=== PATIENT | female | born 1955 | race Caucasian/White ===

== ENCOUNTER 2025-03-04 11:16 | Emergency (ER) | payer MEDICAID, SELFPAY ==
--- OUTSIDE RECORDS SUMMARY | 2019-11-13 03:18 | XMS_ITS | Continuity of Care Document ---
Author Organization [facility] Address [address] [id number] [address] Phone Care Team Providers Care Software Client Architect Name Role Phone Akash Wu MD Unavailable Unavailable Allergies, Adverse Reactions, Alerts Substance Reaction Status Criticality Penicillins Other Active No Information Penicillins Other Active No Information Medications Medication Instructions Dosage Effective Dates (start - stop) Status Comments Cipro 500 mg tablet take 1 tablet by oral route every 12 hours for 3 days for presumed UTI; appt if not better. - Active pharm note please call pt when ready Cipro 500 mg tablet take 1 tablet by oral route every 12 hours x 7 days - Active Anusol-HC 2.5 % rectal cream apply by topical route 2 times every day to the affected area(s) as needed for external hemorrhoids; may keep at bedside - Active metformin 1,000 mg tablet take 1 and a half tablet by oral route every morning and 1 tab by mouth every evening with meals, not dose increase - Active ibuprofen 600 mg tablet take 1 tablet by oral route 3 times every day with food as needed for pain - Active DME use as needed for period/when having period blood flow. - Active Icy Hot 30 %-10 % topical cream use as directed for back/hip pain - Active aspirin 325 mg tablet take 1 tablet by oral route every 6 hours as needed for pain; to replace ibuprofen - Active gemfibrozil 600 mg tablet take 1 tablet by oral route 2 times every day 30 minutes before morning and evening meal for high triglycerides - Active new med Zyrtec 10 mg tablet take 1 tablet by oral route every day 10 MG - Active Tums 200 mg calcium (500 mg) Chewable Tab take 2-3 prn repeatQ hourif sx return, no more than 10 tabs in 24 hours. - Active Eucerin Topical Cream daily as directed for dry skin - Active Topamax 100 mg Tab take 1 Tablet (100MG) by ORAL route 2 times every day 100 MG - Active nitroglycerin 0.[address] 1 tablet (0.4MG) by sublingual route at the 1st sign of attack; may repeat every 5 min until relief; if pain persists after 3 tablets in 15 min, prompt medical attention is recommended for prn chest pain 0.4 MG - Active Calcium 500 + D 500 mg (1,250 mg)-200 unit Tab take 1 Tablet by Oral route 3 times every day 1 Tablet - Active Tylenol 325 mg tablet take 1 - 2 tablet by oral route every 4 - 6 hours as needed, max of 3000mg per day - Active Zyprexa Zydis 5 mg disintegrating tablet take 1 tablet by oral route 2 times every day and place on top of the tongue where it will dissolve, then swallow 5 MG - Active Depakote ER 500 mg tablet,extended release take 1 tablet by oral route every day 500 MG - Active lisinopril 20 mg tablet take 1 tablet by oral route every day 20 MG - Active Flonase 50 mcg/actuation Nasal [place] inhale 1 spray by intranasal route every day in each nostril - Active Milk of Magnesia 400 mg/5 mL Oral Susp take 30 milliliter by ORAL route every day as needed, followed by a full glass (8 oz) of liquid 30.00 milliliter - Active Colace 50 mg Cap take 2 Capsule by oral route 2 times every day at bedtime as needed 100 MG - Active lorazepam 2 mg tablet take 1 tablet by ORAL route every bedtime as needed 2 MG - Active haloperidol 5 mg tablet take 1 tablet by oral route 2 times every day 5 MG - Active olanzapine 15 mg tablet take 1 tablet by oral route every day 15 MG - Active trazodone 50 mg tablet take 1 by Oral route twice daily as needed - Active clonazepam 0.5 mg tablet take 1 tablet by oral route 2 times every day 0.5 MG - Active Procedures Procedure Date URINE CULTURE, ROUTINE CPT 91025 2016 URINALYSIS AUTO W/O SCOPE OFFICE/OUTPATIENT VISIT EST No Charge Lab Codes OFFICE/OUTPATIENT VISIT EST MICROALBUMIN SEMIQUANT ASSAY OF URINE CREATININE URINALYSIS AUTO W/SCOPE SED RATE C-REACTIVE PROTEIN LIPID PANEL GLYCOSYLATED HEMOGLOBIN TEST Vitamin D 25-OH H Pylori, IgM, IgG, IgA, AB ROUTINE VENIPUNCTURE GENERAL HEALTH PANEL OFFICE/OUTPATIENT VISIT, EST URINALYSIS AUTO W/O SCOPE GLYCOSYLATED HEMOGLOBIN TEST OFFICE/OUTPATIENT VISIT EST Pap Test & HPV CPT 47974/35269 17 PREV VISIT, EST, AGE 40-64 MICROALBUMIN SEMIQUANT ASSAY OF URINE CREATININE URINALYSIS AUTO W/SCOPE COMPREHEN METABOLIC PANEL LIPID PANEL GLYCOSYLATED HEMOGLOBIN TEST ROUTINE VENIPUNCTURE OFFICE/OUTPATIENT VISIT EST OFFICE/OUTPATIENT VISIT EST X-RAY EXAM OF LOWER SPINE, 2-3 views Sep COMPREHEN METABOLIC PANEL ROUTINE VENIPUNCTURE (PP $3.50) 016 GLYCOSYLATED HEMOGLOBIN TEST X-RAY EXAM OF LOWER SPINE, 2-3 views Sep OFFICE/OUTPATIENT VISIT EST URINE TEST URINALYSIS AUTO W/O SCOPE URINE CULTURE, ROUTINE CPT 45151 2015 OFFICE/OUTPATIENT VISIT, EST PREV VISIT, EST, AGE 40-64 OFFICE/OUTPATIENT VISIT EST COMPLETE CBC W/AUTO DIFF WBC ASSAY THYROID STIM HORMONE ROUTINE VENIPUNCTURE (PP $3.50) 016 GLYCOSYLATED HEMOGLOBIN TEST URINE TEST URINALYSIS AUTO W/SCOPE URINE TEST (PP $7) OFFICE/OUTPATIENT VISIT EST COMPLETE CBC W/AUTO DIFF WBC (PP $13.25) ASSAY THYROID STIM HORMONE (PP $28.50) ROUTINE VENIPUNCTURE (PP $3.50) 015 OFFICE/OUTPATIENT VISIT EST MICROALBUMIN SEMIQUANT (PP $7.75) ASSAY OF URINE CREATININE (PP $8.75) Sep GLYCOSYLATED HEMOGLOBIN TEST (PP $16.50) COMPREHEN METABOLIC PANEL (PP $18) ROUTINE VENIPUNCTURE (PP $3.50) 015 X-RAY EXAM OF HIP, 2 views X-RAY EXAM OF HIP, 2 views X-RAY EXAM OF LOWER SPINE, 2-3 views Aug X-RAY EXAM OF HIP, 2 views X-RAY EXAM OF LOWER SPINE, 2-3 views Jul X-RAY EXAM OF HIP, 2 views OFFICE/OUTPATIENT VISIT EST TISSUE EXAM BY PATHOLOGIST (PP $54) BIOPSY OF UTERUS LINING OFFICE/OUTPATIENT VISIT EST COMPLETE CBC W/AUTO DIFF WBC (PP $13.25) COMPREHEN METABOLIC PANEL (PP $18) -2013 GLYCOSYLATED HEMOGLOBIN TEST (PP $16.50) LIPID PANEL (PP $22.75) ROUTINE VENIPUNCTURE (PP $3.50) 014 URINE TEST (PP $7) URINALYSIS AUTO W/SCOPE (PP $5.50) OFFICE/OUTPATIENT VISIT, EST GLYCOSYLATED HEMOGLOBIN TEST (PP $16.50) ROUTINE VENIPUNCTURE (PP $3.50) 014 OFFICE/OUTPATIENT VISIT, EST Pap Test & HPV CPT 52422/30692 14 OFFICE/OUTPATIENT VISIT, EST URINALYSIS AUTO W/O SCOPE (PP $3.50) Sep URINE TEST (PP $7) ROUTINE VENIPUNCTURE (PP $3.50) 014 GENERAL HEALTH PANEL COMPLETE CBC W/AUTO DIFF WBC (PP $13.25) COMPREHEN METABOLIC PANEL (PP $18) GLYCOSYLATED HEMOGLOBIN TEST (PP $16.50) ROUTINE VENIPUNCTURE (PP $3.50) 014 OFFICE/OUTPATIENT VISIT, EST ASSAY OF FREE THYROXINE (PP $15.25) LIPID PANEL (PP $22.75) ROUTINE VENIPUNCTURE (PP $3.50) 013 GENERAL HEALTH PANEL OFFICE/OUTPATIENT VISIT, EST URINALYSIS AUTO W/O SCOPE (PP $3.50) Jan OFFICE/OUTPATIENT VISIT, EST X-ray Foot, Complete - AP, Oblique, Late ral, 3 Views OFFICE/OUTPATIENT VISIT, EST COMPREHEN METABOLIC PANEL (PP $18) ROUTINE VENIPUNCTURE (PP $3.50) 012 OFFICE/OUTPATIENT VISIT, EST OFFICE/OUTPATIENT VISIT, EST OFFICE/OUTPATIENT VISIT, EST OFFICE/OUTPATIENT VISIT, EST PREV VISIT, EST, AGE 40-64 OFFICE/OUTPATIENT VISIT, EST ELECTROCARDIOGRAM, COMPLETE OFFICE/OUTPATIENT VISIT, EST COMPLETE CBC W/AUTO DIFF WBC (PP $10) Ma OCCULT BLOOD, FECES (PP $10) PREV VISIT, EST, AGE 40-64 PAP IG (PP $35) OCCULT BLD FECES, 1-3 TESTS (PP $10) Jun COMPREHEN METABOLIC PANEL (PP $15) LIPID PANEL (PP $20) ASSAY THYROID STIM HORMONE (PP $15) ASSAY, DIPROPYLACETIC ACID (PP $20) OFFICE/OUTPATIENT VISIT, EST EST-EXP PROB FOC/LOW COMPLEXITY 010 MED NUTRITION, INDIV, SUBSEQ LIPID PANEL $20 (293212) OCCULT BLD, $10 (IN-HOUSE) THIN PREP PAP ONLY $35 (821747) 010 PREVENT-EST, 40-64 COMPLETE CBC W/AUTO DIFF WBC $10 (263080 ) DEPAKOTE (VALPROIC ACID) $ 20 (369122) F URINALYSIS MACROSCOPIC $5 (in-house) Jul FOLATE (FOLIC ACID) $15 (736811) 2009 COMPREHEN METABOLIC PANEL $15 (724701) F EST-EXP PROB FOC/LOW COMPLEXITY 010 NEW-DETAIL/LOW COMPLEXITY Advance Directives Directive Yes / No Effective Date File Name No Information Encounters Encounter Description Practice Location Reason(s) For Visit Diagnoses Date Provider Providers Copied on Encounter [facility], [id number] [place], [address], [place] tel:[phone] [facility] F1 No Information 3 0 Bryce Bustos. [address] [place], [address], [place]. tel:[phone] [facility], [address] [place]38[place], [address], [place] tel:[phone] Family [facility] F1 No Information 9 Suraj Mcgee. [address], [place], [address], [place]. tel:[phone] [facility], [id number] 6229349AV- [facility], [place], [place], [address], [place] tel:[phone] Family [facility] F1 No Information 7 Suraj Mcgee. [address] [place], [place], [address], [place]. tel:[phone] [facility], [address] 1136921PY- [facility], [place], [place], [address], [place] tel:[phone] [facility] F1 Urinary tract infection, site not specified 7 Elmo Moon. [address], [place], [address], [place]. tel:[phone] Referring Provider: Red Borrego, [address] [place], [address] . tel:[phone] [facility], [address]W1 0313771HS- [place], [address], [place] tel:[phone] Family [facility] F1 Dysuria 7 Elmo Moon. [address], [place], [address], [place]. tel:[phone] Referring Provider: Red Borrego, [address] [place], [address] . tel:[phone] OFFICE/OUTPA TIENT VISIT EST [facility], [id number] 3248009BU- [place], [address], [place] tel:[phone] Family [facility] F1 uti (chief complaint) UTI 7 Elmo Moon. [address], [place], [address], [place]. tel:[phone] Referring Provider: Red Borrego, [address] [place], [address] . tel:[phone] [facility], [address]cc[address] 9190210DI- [place], [address], [place] tel:[phone] Family [facility] F1 Diarrhea, unspecifiedMi xed hyperlipidemi aType 2 diabetes mellitus without complications Other termite control servicer (current) drug therapyNausea 7 Suraj Everardo. [address], [place], [address], [place]. tel:[phone] Referring Provider: Everardo Vanegas, [address] [place], [address] . tel:[phone] [facility], [address]ijg[address]T1 4081531OV- [place], [place], [address], [place] tel:[phone] [facility] F1 DysuriaType 2 diabetes mellitus without complications 7 Suraj Everardo. [address], [place], [address], [place]. tel:[phone] Referring Provider: Everardo Vanegas, [address] [place], [address] . tel:[phone] [facility], [id number] 3043288NU- [place], [address], [place] tel:[phone] [facility] F1 Dysuria 7 Suraj Everardo. [address], [place], [address], [place]. tel:[phone] Referring Provider: Everardo Vanegas, [address] [place], [address] . tel:[phone] OFFICE/OUTPA TIENT VISIT EST [facility], [address]gwud[address]T8 5947524VV- [place], [address], [place] tel:[phone] Family Medicine F1 Established Patient (chief complaint)anx iety (chief complaint)H&P (chief complaint) NauseaType 2 diabetes mellitus without complications Essential (primary) hypertensionD ysuriaMixed hyperlipidemi aConstipation , unspecifiedDi arrhea, unspecifiedOt her termite control servicer (current) drug therapyEncoun ter for screening for malignant neoplasm of colon Suraj Mcgee. [address], [place], [address], [place]. tel:[phone] Referring Provider: Everardo Vanegas, [address] [place], [address] . tel:[phone] OFFICE/OUTPA TIENT VISIT, [facility], [address] 8200047VKElwell, [place], [address], [place] tel:[phone] Family Medicine F1 dysuria (chief complaint) Dysuria Aaron Florez. [address] [place] [address], [address], [place]. tel:[phone] Referring Provider: Vikki Walker, [address] [place] [address], [address] . tel:[phone] [facility], [address] Nuqpy[address]I4 2279800VYSaint [place], [address], [place] tel:[phone] Family [facility] F1 Dysuria Aaron Florez. [address] [place] [address], [id number], [place]. tel:[phone] Referring Provider: Vikki Walker, [address] [place] [address], [address] . tel:[phone] [facility], [address] 4958504CCEl[place], [place], [address], [place] tel:[phone] Family [facility] F1 Type 2 diabetes mellitus without complications Suraj Mcgee. [address], [place], [address], [place]. tel:[phone] Referring Provider: Everardo Vanegas, [address] [place], [address] . tel:[phone] OFFICE/OUTPA TIENT VISIT EST [facility], [address] Tpmpj[address]V3 6037562UG- [place], [address], [place] tel:[phone] Family [facility] F1 Follow Up of Hypertension (chief complaint)Allan sea (chief complaint)panfilo betes (chief complaint) Essential (primary) hypertensionT ype 2 diabetes mellitus without complications 7 Suraj Mcgee. [address], [place], [address], [place]. tel:[phone] Referring Provider: Everardo Vanegas, [address] [place], [address] . 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 [address], [place], [address], [place]. tel:[phone] Referring Provider: Everardo Vanegas, [address] [place], [address] . 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 [address], [place], [address], [place]. tel:[phone] Referring Provider: Everardo Vanegas, [address] [place], [address] . tel:[phone] OFFICE/OUTPA TIENT VISIT EST [facility], [address] Ast[address] 7877997VT- [place], [address], [place] tel:[phone] Family [facility] F1 labs (chief complaint)sor e throat (chief complaint)ear ache both ears (chief complaint)all ergies (chief complaint)panfilo betes (chief complaint)hyp ertension (chief complaint) Pure hyperglycerid emiaType 2 diabetes mellitus without complications Allergic rhinitis, unspecifiedPh aryngitisEsse ntial (primary) hypertension 6 Suraj Mcgee. [address], [place], [address], [place]. tel:[phone] Referring Provider: Everardo Vanegas, [address] [place], [address] . tel:[phone] [facility], [address] Kyyeu[address]I4 7559589CS- [place], [address], [place] tel:[phone] Family Medicine F1 Essential (primary) hypertensionT ype 2 diabetes mellitus without complications 6 Suraj Mcgee. [address], [place], [address], [place]. tel:[phone] Referring Provider: Everardo Vanegas, [address] [place], [address] . tel:[phone] [facility], [address] Fmnrn[address]L7 4205375HFSaint [place], [place], [address], [place] tel:[phone] Family Medicine F1 Essential (primary) hypertensionT ype 2 diabetes mellitus without complications 6 Suraj Mcgee. [address], [place], [address], [place]. tel:[phone] Referring Provider: Everardo Vanegas, [address] [place], [address] . tel:[phone] OFFICE/OUTPA TIENT VISIT EST [facility], [address] Qmnny[address]C4 0400464WZ- [place], [address], [place] tel:[phone] Family [facility] F1 H&P (chief complaint) Type 2 diabetes mellitus without complications Pure hyperglycerid emiaEssential (primary) hypertensionH emorrhoidsAll ergic rhinitis, unspecified Misael- 6 Suraj Mcgee. [address], [place], [address], [place]. tel:[phone] Referring Provider: Everardo Vanegas, [address] [place], [address] . tel:[phone] [facility], [address] Aseoa419W1 5304106JBSaint [place], [place], [address], [place] tel:[phone] Family Medicine F1 Low back pain Sep-2 6 Viri Quinonez. [address], [place], [address], [place]. tel:[phone] [facility], [address] Fmdgz[address]U4 0440809UI- [place], [address], [place] tel:[phone] Family [facility] F1 Pure hyperglycerid emia Sep- 6 Suraj Mcgee. [address], [place], [address], [place]. tel:[phone] Referring Provider: Everardo Vanegas, [address] [place], [address] . tel:[phone] [facility], [address] Deiet767G2 1581779ZTSaint [place], [place], [address], [place] tel:[phone] Family Medicine F1 Type 2 diabetes mellitus without complications Sep-2 6 Suraj Mcgee. [address], [place], [address], [place]. tel:[phone] Referring Provider: Everardo Vanegas, [address] [place], [address] . tel:[phone] OFFICE/OUTPA TIENT VISIT [facility], [address] [id number] 1624311NXEl[place], [place], [address], [place] tel:[phone] Family Medicine F1 diabetes (chief complaint)bev k pain (chief complaint)pre gnancy test (chief complaint) Type 2 diabetes mellitus without complications Irregular menstruation, unspecifiedLu mbagoPure hyperglycerid emia 6 Suraj Mcgee. [address], [place], [address], [place]. tel:[phone] Referring Provider: Everardo Vanegas, [address] [place], [address] . tel:[phone] [facility], [address] Znjxb955U5 5743839XBSaint [place], [place], [address], [place] tel:[phone] Family Medicine F1 Irregular menstruation, unspecified 6 Suraj Everardo. [address], [place], [address], [place]. tel:[phone] Referring Provider: Everardo Vanegas, [address] [place], [address] . tel:[phone] OFFICE/OUTPA TIENT VISIT, [facility], [address] Vytne611W6 8229877PHSaint [place], [place], [address], [place] tel:[phone] Family Medicine F1 Possible UTI (chief complaint) UTI 6 Haroldo Woodwarda. [address], [place], [address], [place]. tel:[phone] Referring Provider: Red Borrego, [address] [place], [address] . tel:[phone] [facility], [address] Tidos596A0 1357262JW- [place], [address], [place] tel:[phone] Family Medicine F1 Dysuria 6 Climer Polina. [address], [place], [address], [place]. tel:[phone] Referring Provider: Red Borrego, [address] [place], [address] . 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 [address], [place], [address], [place]. tel:[phone] Referring Provider: Everardo Vanegas, [address] [place], [address] . tel:[phone] OFFICE/OUTPA TIENT VISIT EST [facility], [address] Ikzjo439I9 1629728CW- [place], [address], [place] tel:[phone] Family Medicine F1 Heavy menstration; pt would like diapers (chief complaint)Bur castro while urination (chief complaint) Irregular menstruation, unspecifiedDy suriaType 2 diabetes mellitus without complications 6 Suraj Mcgee. [address], [place], [address], [place]. tel:[phone] Referring Provider: Everardo Vanegas, [address] [place], [address] . tel:[phone] [facility], [address] Ibrlm595S0 0868707QJSaint [place], [place], [address], [place] tel:[phone] Family Medicine F1 No Information 5 Suraj Everardo. [address], [place], [address], [place]. tel:[phone] Referring Provider: Everardo Vanegas, [address] [place], [address] . tel:[phone] OFFICE/OUTPA TIENT VISIT EST [facility], [address] Eonih362K1 6580633GYSaint [place], [place], [address], [place] tel:[phone] Family Medicine F1 Heavy periods (chief complaint)Toe fungus possibly (chief complaint)Sor e throat (chief complaint) No Information 5 Suraj Everardo. [address], [place], [address], [place]. tel:[phone] Referring Provider: Everardo Vanegas, [address] [place], [address] . tel:[phone] [facility], [address] Jywiq707A7 6679177WQSaint [place], [place], [address], [place] tel:[phone] Family Medicine F1 No Information 5 Suraj Everardo. [address], [place], [address], [place]. tel:[phone] Referring Provider: Everardo Vanegas, [address] [place], [address] . tel:[phone] [facility], [address] Ipzzo128M2 3242706EUSaint [place], [place], [address], [place] tel:[phone] Family Medicine F1 No Information 5 Suraj Everardo. [address], [place], [address], [place]. tel:[phone] Referring Provider: Everardo Vanegas, [address] [place], [address] . tel:[phone] OFFICE/OUTPA TIENT VISIT EST [facility], [address] Szumq582L3 7799671AF- [place], [place], [address], [place] tel:[phone] Family Medicine F1 Diabetic follow up (chief complaint)H&P (chief complaint) No Information 5 Suraj Mcgee. [address], [place], [address], [place]. tel:[phone] Referring Provider: Everardo Vanegas, [address] [place], [address] . tel:[phone] [facility], [address] Bliks368K7 8888884VKSaint [place], [place], [address], [place] tel:[phone] Family Medicine F1 No Information 5 Suraj Mcgee. [address], [place], [address], [place]. tel:[phone] Referring Provider: Everardo Vanegas, [address] [place], [address] . tel:[phone] [facility], [address] Hqosb266J5 7069052FTSaint [place], [place], [address], [place] tel:[phone] Family Medicine F1 No Information 5 Viri Quinonez. [address], [place], [address], [place]. tel:[phone] OFFICE/OUTPA TIENT VISIT EST [facility], [address] Actxn220V0 7634766UOSaint [place], [place], [address], [place] tel:[phone] Family Medicine F1 endo biopsy results/lab results (chief complaint)bev k pain (chief complaint)hea daches (chief complaint)panfilo betes (chief complaint)hyp erlipidemia (chief complaint) No Information 5 Suraj Mcgee. [address] [place], [place], [address], [place]. tel:[phone] Referring Provider: Everardo Vanegas, [address] [place], [address] . tel:[phone] [facility], [address] Clxlv545F4 4045090RO- [place], [place], [address], [place] tel:[phone] Family Medicine F1 No Information 4 Suraj Everardo. [address], [place], [address], [place]. tel:[phone] Referring Provider: Everardo Vanegas, [address] [place], [address] . tel:[phone] OFFICE/OUTPA TIENT VISIT EST [facility], [address] Utgxi979A2 5361942RNElwell, [place], [address], [place] tel:[phone] Family Medicine F1 Endometrial biopsy (chief complaint)diz ziness (chief complaint)bev k pain (chief complaint)chr onic conditions (chief complaint) No Information 4 Suraj Everardo. [address] [place], [place], [address], [place]. tel:[phone] Referring Provider: Everardo Vanegas, [address] [place], [address] . tel:[phone] [facility], [address] Cormn468M6 7096443VB- [place], [place], [address], [place] tel:[phone] Family Medicine F1 No Information 4 Suraj Everardo. [address] [place], [place], [address], [place]. tel:[phone] Referring Provider: Everardo Vanegas, [address] [place], [address] . tel:[phone] [facility], [address] Irnxn854K5 3779566FR- [place], [place], [address], [place] tel:[phone] Family Medicine F1 No Information 4 Suraj Mcgee. [address], [place], [address], [place]. tel:[phone] Referring Provider: Everardo Vanegas, [address] [place], [address] . tel:[phone] [facility], [address] Jksbz926N4 3190857GRElwell, [place], [address], [place] tel:[phone] Family Medicine F1 No Information 4 Suraj Mcgee. [address], [place], [address], [place]. tel:[phone] Referring Provider: Everardo Vanegas, [address] [place], [address] . tel:[phone] OFFICE/OUTPA TIENT VISIT, [facility], [address] Bspod046V4 7940775GQSaint [place], [place], [address], [place] tel:[phone] Family Medicine F1 follow up ultrasound (chief complaint) No Information 4 Suraj Mcgee. [address], [place], [id number], [place]. tel:[phone] Referring Provider: Everardo Vanegas, [address] [place], [address] . tel:[phone] OFFICE/OUTPA TIENT VISIT, [facility], [id number] [place], [id number], [place] tel:[phone] Family Medicine F1 Irregular periods (chief complaint)uri ne retention (chief complaint)panfilo betes (chief complaint) No Information 4 Suraj Mcgee. [address], [place], [address], [place]. tel:[phone] Referring Provider: Everardo Vanegas, [address] [place], [address] . tel:[phone] [facility], [address] [id number]- [place], [place], [address], [place] tel:[phone] Family Medicine F1 No Information Sep-3 0-201 4 Suraj Mcgee. [address], [place], [address], [place]. tel:[phone] Referring Provider: Everardo Vanegas, [address] [place], [address] . tel:[phone] [facility], [address] [id number] [place], [address], [place] tel:[phone] Family Medicine F1 No Information Apr-1 0-201 4 Suraj Mcgee. [address], [place], [address], [place]. tel:[phone] Referring Provider: Everardo Vanegas, [address] [place], [address] . tel:[phone] OFFICE/OUTPA TIENT VISIT, [facility], [address] [id number], [address], [place] tel:[phone] Family Medicine F1 well woman (chief complaint) No Information Apr-1 0-201 4 Suraj Mcgee. [address], [place], [address], [place]. tel:[phone] Referring Provider: Everardo Vanegas, [address] [place], [address] . tel:[phone] [facility], [address] [id number] [place], [address], [place] tel:[phone] Family Medicine F1 No Information 0 4 Suraj Mcgee. [address], [place], [address], [place]. tel:[phone] Referring Provider: Everardo Vanegas, [address] [place], [address] . tel:[phone] [facility], [address] [id number] [place], [address], [place] tel:[phone] Family Medicine F1 No Information 4 Suraj Mcgee. [address], [place], [address], [place]. tel:[phone] Referring Provider: Everardo Vanegas, [address] [place], [address] . tel:[phone] OFFICE/OUTPA TIENT VISIT, [facility], [address] [id number] [id number] [place], [address], [place] tel:[phone] Family Medicine F1 diarrhea (chief complaint)lab s (chief complaint)malena st pain (chief complaint) No Information 4 Suraj Mcgee. [address], [place], [address], [place]. tel:[phone] Referring Provider: Everardo Vanegas, [address] [place], [address] . tel:[phone] [facility], [address] [id number] [place], [address], [place] tel:[phone] Family Medicine F1 No Information 3 Suraj Mcgee. [address], [place], [address], [place]. tel:[phone] Referring Provider: Everardo Vanegas, [address] [place], [address] . tel:[phone] OFFICE/OUTPA TIENT VISIT, [facility], [address] [id number], [place], [place], [address], [place] tel:[phone] Pediatrics F1 History and Physical (chief complaint)sor e throat (chief complaint)Gas (chief complaint) No Information 3 No Information [facility], [address] [id number] [place], [address], [place] tel:[phone] Family Medicine F1 No Information 3 No Information OFFICE/OUTPA TIENT VISIT, [facility], [address] [id number] [place], [address], [place] tel:[phone] Pediatrics F1 History and Physical (chief complaint)sor e throat (chief complaint) No Information 3 No Information OFFICE/OUTPA TIENT VISIT, [facility], [address] [id number] [place], [address], [place] tel:[phone] Family Medicine F1 lasix (chief complaint)bir th control (chief complaint)farzana t px (chief complaint) No Information 2 Suraj Mcgee. [address], [place], [address], [place]. tel:[phone] Referring Provider: Everardo Vanegas, [address] [place], [address] . tel:[phone] [facility], [address] Aigsf447F5 [id number] [place], [address], [place] tel:[phone] Family Medicine F1 No Information 2 Suraj Mcgee. [address], [place], [address], [place]. tel:[phone] Referring Provider: Everardo Vanegas, [address] [place], [address] . tel:[phone] OFFICE/OUTPA TIENT VISIT, [facility], [address] [id number] [facility], [place], [place], [address], [place] tel:[phone] Family Medicine F1 swelling (chief complaint) No Information 2 Suraj Mcgee. [address], [place], [address], [place]. tel:[phone] Referring Provider: Everardo Vanegas, [address] [place], [address] . tel:[phone] OFFICE/OUTPA TIENT VISIT, [facility], [address] [id number] [id number] [place], [address], [place] tel:[phone] Family Medicine F1 swelling (chief complaint) No Information 2 No Information OFFICE/OUTPA TIENT VISIT, [facility], [address] [id number] [place], [place], [address], [place] tel:[phone] Family Medicine F1 rash (chief complaint) No Information 2 No Information OFFICE/OUTPA TIENT VISIT, [facility], [address] [id number] [id number] [place], [place], [address], [place] tel:[phone] Family Medicine F1 rash (chief complaint) No Information 2-201 2 Eboni Munoz. [address] [place], [address], [place]. tel:[phone] Referring Provider: Tammy Lyn, [address] [place], [address]. tel:[phone] PREV VISIT, [facility], AGE 40-64 [facility], [address] [id number] [place], [place], [address], [place] tel:[phone] Family Medicine F1 physical/pap (chief complaint)young ast exam (chief complaint) No Information 2 Suraj Mcgee. [address], [place], [address], [place]. tel:[phone] Referring Provider: Everardo Vanegas, [address] [place], [address] . tel:[phone] [facility], [address] [id number] [id number]- [place], [address], [place] tel:[phone] Family Medicine F1 No Information 2 No Information OFFICE/OUTPA TIENT VISIT, [facility], [address] [id number] [id number]- [place], [address], [place] tel:[phone] Family Medicine F1 H&P [facility] (chief complaint) No Information 2 Suraj Mcgee. [address], [place], [address], [place]. tel:[phone] Referring Provider: Everardo Vanegas, [address] [place], [address] . tel:[phone] OFFICE/OUTPA TIENT VISIT, [facility], [address] [id number]- [place], [address], [place] tel:[phone] Family Medicine F1 rash (chief complaint) No Information 1 No Information [facility], [address] [id number] 7574019NR- [place], [address], [place] tel:[phone] Family Medicine F1 No Information 1 Suraj Mcgee. [address], [place], [address], [place]. tel:[phone] PREV VISIT, [facility], AGE 40-64 [facility], [address] [id number]- [place], [address], [place] tel:[phone] Family Medicine F1 PAP test (chief complaint) No Information 1 Suraj Everardo. [address], [place], [address], [place]. tel:[phone] Referring Provider: Everardo Vanegas, [address] [place], [address] . tel:[phone] OFFICE/OUTPA TIENT VISIT, [facility], [address] Yailf754G6 8812190XEElwell, [place], [address], [place] tel:[phone] Family Medicine F1 [facility] H[facility] (chief complaint) No Information 9201 0 Suraj Everardo. [address], [place], [address], [place]. tel:[phone] Referring Provider: Everardo Vanegas, [address] [place], [address] . tel:[phone] EST-EXP PROB FOC/LOW COMPLEXITY [facility], [address] [id number] [place], [place], [address], [place] tel:[phone] Family Medicine F1 No Information 0 0 Suraj Everardo. [address], [place], [address], [place]. tel:[phone] [facility], [address] [id number] 0986154KVElwell, [place], [address], [place] tel:[phone] Family Medicine F1 No Information 0-201 0 No Information PREVENT-EST, 40-64 [facility], [address] [id number] [id number], [place], [address], [place] tel:[phone] Family Medicine F1 No Information 2-201 0 Suraj Mcgee. [address], [place], [address], [place]. tel:[phone] EST-EXP PROB FOC/LOW COMPLEXITY [facility], [address] [id number] [facility], [place], [place], [address], tel:[phone] Family Medicine F1 No Information 5-201 0 Suraj Mcgee. [address], [place], [address], [place]. tel:[phone] NEW-DETAIL/L OW COMPLEXITY [facility], [address] [id number] [id number], [place], [address], [place] tel:[phone] Family Medicine F1 No Information 9-200 9 Suraj Mcgee. [address], [place], [address], [place]. tel:[phone] Family History Family Member Type Diagnosis Age At Onset Mother Problem (finding) hypothyroidism Mother Problem (finding) hypertension Father Problem (finding) Close relative Problem (finding) Hepatitis Father Problem (finding) Heart disease (Cause Of ) Immunizations Vaccine Date Status Comments Influenza, injectable, quadrivalent, preservative free, 3 yrs or older administered Note: Advised patie nt to remain in clinic for 10 minutes. No adverse reactions noted. VIS 08-07-15NDC [id number] ; Source: New Immunization Record Payers Payer name Insurance type Covered alliance party ID Corey randhawa(s) M [place] [employer] MC [id number] [place] [employer] [place] [id number] Social History Type Description Quantity Date Captured Comments Alcohol Use Details Unknown Caffeine Use Details Unknown Tobacco Use Status No Information Smoking Status No Information Sex Female Gender Identity Female Chief Complaint And Reason For Visit No Information Reason For Referral Reason For Referral No Information Plan Of Treatment Date Type Action Status Goal Fasting Blood Gl ucose. Due on due Goal Diabetes screeni ng. Due on due Goal BMP. Due on due Goal CBC. Due on due Goal Lipid panel. Due on due Goal Creatinine. Due on due Goal Potassium. Due on 0 due Goal Urinalysis. Due on due Goal Fasting Blood Gl ucose. Due on due Goal Lipid panel. Due on due Goal Potassium. Due on 8 due Goal BMP. Due on due Goal Diabetes screeni ng. Due on due Goal hypertensive lif estyle modification. Due on due Goal CBC. Due on due Goal Creatinine. Due on 18 due Goal hypertensive lif estyle modification. Due on due Goal Diabetes screeni ng. Due on due Goal Fasting Blood Gl ucose. Due on due Goal CBC. Due on due Goal Diabetes screeni ng. Due on due Goal Fasting Blood Gl ucose. Due on due Goal hypertensive lif estyle modification. Due on due Goal Diabetes screeni ng. Due on due Goal hypertensive lif estyle modification. Due on due Goal Fasting Blood Gl ucose. Due on due Goal CBC. Due on due Goal Diabetes screeni ng. Due on due Goal hypertensive lif estyle modification. Due on due Goal Fasting Blood Gl ucose. Due on due Goal CBC. Due on due Goal CBC. Due on due Goal hypertensive lif estyle modification. Due on due Goal Fasting Blood Gl ucose. Due on due Goal Fasting Blood Gl ucose. Due on due Goal Lipid panel. Due on due Goal CBC. Due on due Goal hypertensive lif estyle modification. Due on due Goal Fasting Blood Gl ucose. Due on due Goal hypertensive lif estyle modification. Due on due Goal Lipid panel. Due on due Goal CBC. Due on due Goal Lipid panel. Due on due Goal CBC. Due on due Goal hypertensive lif estyle modification. Due on due Goal Fasting Blood Gl ucose. Due on due Goal hypertensive lif estyle modification. Due on due Goal Fasting Blood Gl ucose. Due on due Goal Lipid panel. Due on due Goal CBC. Due on due Goal Fasting Blood Gl ucose. Due on due Goal CBC. Due on due Goal hypertensive lif estyle modification. Due on due Goal Lipid panel. Due on due Goal hypertensive lif estyle modification. Due on due Goal CBC. Due on due Goal Fasting Blood Gl ucose. Due on due Goal hypertensive lif estyle modification. Due on due Goal CBC. Due on due Goal Fasting Blood Gl ucose. Due on due Goal hypertensive lif estyle modification. Due on due Goal Fasting Blood Gl ucose. Due on due Goal Fasting Blood Gl ucose. Due on due Goal hypertensive lif estyle modification. Due on due Goal hypertensive lif estyle modification. Due on due Goal Fasting Blood Gl ucose. Due on due Goal Lipid panel. Due on due Goal Lipid panel. Due on due Goal hypertensive lif estyle modification. Due on due Goal Fasting Blood Gl ucose. Due on due Goal hypertensive lif estyle modification. Due on due Goal ECG. Due on due Referral Ordered: Referrals: Urology. Evaluate and treat Appointment date/timeframe: 03/28/2017 ordered Referral Ordered: Referrals: screening colonoscopy ordered Referral Ordered: Referrals: screening mammogram. Diagnostic testing ordered Referral Ordered: Referrals: screening mammogram Diagnostic testing ordered Referral Ordered: Referrals: Diagnostic Radiology. Diagnostic testing Appointment date/timeframe: 04/08/2014 ordered Referral Ordered: US EXAM, PELVIC, Complete (Transvaginal As Needed) ordered Referral Ordered: X-ray Foot, Complete - AP, Oblique, Lateral, 3 Views Left ordered Referral Ordered: Referral: Diagnostic Radiology. Appointment date/timeframe: 07/12/2011 ordered Patient Education Kegel Exercises: After Your Visit completed Future Order: Lab Order Glucose, Finger ([id number]), Sent on: Sent Future Order: Lab Order Occult B lood X3 ([id number]), Sent on: Sent Future Order: Radiology Order Hi p X-ray , Complete - AP and Lateral, 2 Views ([id number]), Ordered on: Ordered Future Order: Radiology Order Shiloh mbar Spine X-ray, Routine - AP, Lateral, Spot, 3 Views ([id number]), Ordered on: Ordered Future Order: Radiology Order Hi p X-ray , Complete - AP and Lateral, 2 Views ([id number]), Ordered on: Ordered History Of Present Illness Encounter Date Complaint History Of Prese nt Illness uti Onset: 3 Days. T he severity of the problem is mild. Pain scale: 10/10. The problem has not changed. Presenting/Initial symptoms include burning, dribbling, frequency, hesitancy, suprapubic pain and urgency. Denies aggravating factors. Denies relieving factors. Associated symptoms include urgency. Pertinent negatives include fever, hematuria or rash. H&P Alternating cons tipation/diarrhea. No gallbladder. Established Patient Patient pres ents with Extermination Inspector Laurita today for H&P. Patient c/o nausea and bowel problems. KDM anxiety dysuria Location is lowe r back. The patient describes it as bloody, burning, cloudy and odorous. Denies aggravating factors. Additional information: pt has been taking ibuprofen to help the pain.. Follow Up of Hypertension Patiisabel t presents by herself today for follow-up. Nausea Associated sympt oms include headache. Pertinent negatives include cough and fever. Additional information: Patient c/o nausea and fatigue. cold sxs. x 1 wk.. diabetes She Has been man aged with oral medications. Comorbidity: Hypertension. Pertinent negatives include chest pain, diarrhea, dyspnea, frequent urination, weight gain and weight loss. Additional information: Last a1c at the [facility] 05/17/16 at 7.1%.. WWE Patient presents with 2 caseworkers, Laurita and Brenda, today for WWE. Last pap 3 yrs ago, HPV was negative; pt would still like to go ahead and get pap today. No h/o abnormal paps. Has not gotten flu shot this year and would like to get it. Colonscopy about 3 yrs ago, wnl. Diabetes A1C done at the [facility] on 05-17-16; 7.1% earache both ears Bilat ear, pat ients states feels swollen, no drainage diabetes She Has been man aged with oral medications. Comorbidity: Hypertension. Associated symptoms include: frequent urination. Pertinent negatives include dyspnea. Additional information: low 120 high 300/TADEO/Dizziness. sore throat Pain scale: 9/10 . Associated symptoms include cough and postnasal drainage. Pertinent negatives include fever. hypertension Associated sympt oms include headache. Pertinent negatives include chest pain and dyspnea. allergies The patient pres ents with post nasal drainage. The patient is also experiencing cough, headache, nasal drainage and post nasal drainage. The patient denies ear pain and sneezing. Additional information: Patient states ears feel swollen. labs Patient is asael carrasco at the [facility] and is here today with her bilingual patient support caseworker. Patient is fasting today for labs. H&P Patient is asael carrasco at the [facility], here for annual H and P. Patient is here with bilingual patient support caseworker Reports when she goes potty there is blood for the last few days and states no longer bleeding. Reports she thinks it may be a hemorrhoids. Does not remeber when the last colonscopy was done reports it may have been done at [facility]. Insurance Claims Supervisor reports the colonscopy has not been done within the last year. Reports eating hot dogs and cheese all the time. Not fasting today no labs today. test back pain Additional infor anish: Pt hurt herself lifting a few months ago but seen at urgent care here and she had UTI. diabetes She Has been man aged with oral medications. Comorbidity: Hypertension. Pertinent negatives include chest pain, dyspnea and frequent urination. Additional information: Pt is here with bilingual patient support caseworker. Had CMP at [facility] with slight high potassium 5.3 a couple of weeks ago. Pt is not fasting today.. Possible UTI Possible UTI (comments) Increase d confusion, c/o back pain, increased frequency and thinks may have UTI. Denies fever. Has psychiatric hx and has a property caretaker with her today. These symptoms just started in the past couple of days. Has an appt coming up with Dr. Ruelas. No known hx of UTI since October according to her property caretaker but I see a UA from June that looks + from her chart. WWE pap is not neede d due to previous pap was negative. Patient is here with picker tender helper's. She is not menopausal yet and has had some irregular and strong periods every few months but we have worked this up in the past 1-2 yrs and work up was negative. Burning while urination No fever /vomiting. Heavy menstration; p t would like diapers Heavy period, then none for 3 wk and started to have cramps yesterday and should be starting period again soon. Would go 3-4 months and then have a period (longest without a period maybe 10months per pt, her mother and bilingual patient support caseworker), but would be a heavy one for a couple of weeks. LMP around Thanksgiving x 3 weeks then stopped and feels like getting ready to start again soon. Needs order for diapers (she uses it instead of maxi pads. Pt states was on on control in past and it stopped her period. Some fatigue/dizziness. Had normal work up 03/2014. Heavy periods Onset: 1 year ag o. The severity level is moderate-severe. The problem is worse. The symptoms occur occasional. Last menstrual period was 5 Days ago and was on 10/31/2014. The age of menarche onset was 15. Patient not . Presenting / Initial symptoms include breakthrough bleeding, change in menstrual cycle, hirsutism and Cramping. The patient's relevant history is negative for oral contraceptive use. The patient's relevant history is positive for hypertension. Associated symptoms include back pain, constipation and pelvic pain. Toe fungus possibly The symptoms began 6 months ago and generally lasts 6 Months. The symptoms are reported as being moderate. The symptoms occur daily. The location is Bilateral big toes. Aggravating factors include Pain when toenails grow long. She states the symptoms are acute and are of new onset. Sore throat Onset: 3 Weeks. The severity of the problem is moderate. Pain scale: 6/10. The problem has not changed. The symptoms are occasional. Symptoms are associated with history of allergies and sick family member. Symptoms are not associated with history of asthma, recent cold, recent travel and smoker. Symptoms are not aggravated by allergens, cold air, exertion, lying down, smoke or stress. Associated symptoms include headache. Pertinent negatives include chills/rigors, cough, dyspnea, facial pain or fever. 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 She is here with her bilingual patient support caseworker for H&P. Patient reports still having pain in the back and hips. Reports stiffness in the back and pain in the hips with walking. She also reports some muscle spasms in the back. Diabetic follow up Blood sugars for the month... 4/9- 185... 4/10- 173... 4/13- 125... 4/14- 182... 4/15- 162... /17- 120. Reports that since starting the metformin her blood sugars have been much better. endo biopsy results/lab results Pt is from the [employer] here with bilingual patient support caseworker for f/u. Endo bx negative and periods back to normal now. Discussed normal result. back pain diabetes She Has been man aged with oral medications. Additional information: Labs last time and wants to start med for treatment. A1C 6.7%. hyperlipidemia Risk factors inc lude age over 50. Additional information: High triglycerides on last lab. headaches Not migraines. Endometrial biopsy Pt is here wi th bilingual patient support caseworker. Lives at the [employer]. chronic conditions Fasting for a bout 8 hours now. dizziness Additional infor mation: Has not eaten since breakfast 7-8 hours ago. Per previous 2 A1Cs has well controlled diabetes. Pt not on meds. Takes zyprexa per psychiatrist. Last a1c 6.8 in 02/2014. back pain Additional infor anish: Needs a new order for Tylenol. follow up ultrasound Patient is here with picker tender helper. Pt is wanting to discuss pelvic ultrasound result. Patient has not made appt for endometrial biopsy. Patient is having issues urinating (stress incontinence). urine retention Mother would lik e pt off oxybutinin due to pt not being able to urinate. Having trouble with frequent urination and trouble starting to go. She feels like her bladder is all the way empty after voiding. She has the urge to urinate a lot more when she lies down. Denies burning with urination, foul odor, blood in urine. She drinks approximately 2L of water day. She drinks about a gallon of decaf tea with splenda a day. Denies swelling. Irregular periods Last menstrual period was 1 Week 1 Day ago and was on 03/03/2014. The age of menarche onset was 15. The menstrual cycle length is 3 Days(s) Patient not . Presenting / Initial symptoms include hirsutism. The patient's relevant history is negative for oral contraceptive use. Associated symptoms include fatigue. Pertinent negatives include pelvic pain. Additional information: pt having long and heavy periods. Period last week was normal. Prior to this she has about a year of heavy periods that are irregular and last about 6 days. Denies hot flashes. diabetes Associated sympt oms include: frequent urination, increased fatigue and polydipsia. Pertinent negatives include chest pain, weight gain and weight loss. Additional information: pt is not fasting. needs to be checked due to BS being high. FBS 132 this year at [facility] yearly screening and last year 113.. Functional Status Date Functional Assessmen t No Information Instructions Date Instruction Additional Infor anish Will treat with cipr o and get Urine Cx. Placed Urology referral. Pt to f/u as scheduled with PCP or sooner if problems. Related to UTI [facility] history and p hysical examination done. Past medical history, labs and current medications reviewed. Medications printed and attached to order if medications were prescribed; otherwise continue current medications.Labs and screening colonoscopy ordered and await results. Call if symptoms worsen or persist. F/u if not better. Related to Diarrhea, unspecified Hypertension education Related t o Essential (primary) hypertension Weight control education Related to Essential (primary) hypertension will check UA today. Pt left before UA results were back, she does have UTI. I sent antibiotic to her pharmacy. Nurse will contact [facility] to let them know about the antibiotic. Related to Dysuria Continue current med ications. Recheck in 3 months for chronic conditions if you are doing well and your conditions are stable. Call if having any concerning symptoms. Related to Essential (primary) hypertension Labs ordered; contin ue current meds for now and will make changes based on lab results. Related to Type 2 diabetes mellitus without complications Weight control education Related to Essential (primary) hypertension Hypertension education Related t o Essential (primary) hypertension Call or RTC if sympt oms persist or worsen. Related to Pharyngitis per #1 Related to Pure hyperglyceridemia A1c and fasting labs ordered today. Will call with lab results and medication changes if needed. Please see scanned assessment and plan order form from the [facility] for today's visit of H and P for complete details. Medications printed and attached to order if medications were prescribed; otherwise continue current medications. Related to Type 2 diabetes mellitus without complications Discontinue Claritin since it is not helping allergic rhinitis. Continue using flonase and singulair. RTC if needed. Soni Odell was acting as the scribe for this visit. The scribe's documentation has been prepared under my direction and personally reviewed by me. I confirm that the note above accurately reflects all work, treatment, procedures, and medical decision making performed by me. Related to Allergic rhinitis, unspecified per #1 Related to Essen tial (primary) hypertension Weight control education Related to Type 2 diabetes mellitus without complications Chronic Disease - diabetes Relat ed to Type 2 diabetes mellitus without complications Continue taking curr ent meds as prescribe Rylie Narayan was acting as the scribe for this visit. The scribe's documentation has been prepared under my direction and personally reviewed by me. I confirm that the note above accurately reflects all work, treatment, procedures, and medical decision making performed by me. Related to Allergic rhinitis, unspecified Continue taking curr ent meds as prescribe Related to Essential (primary) hypertension Continue taking curr ent meds as prescribe. . Will fast for next appointment. Related to Type 2 diabetes mellitus without complications Continue taking curr ent meds as prescribe Related to Pure hyperglyceridemia [facility] history and p hysical examination done. Past medical history, labs and current medications reviewed. Please see scanned assessment and plan order form from for the [facility] for today's visit for complete details. Medications printed and attached to order if medications were prescribed; otherwise continue current medications.Pt to get records of colonoscopy to us. Related to Hemorrhoids Labs ordered; contin ue current meds for now and will make changes based on lab results. Related to Pure hyperglyceridemia Supportive therapy ( NSAIDs, ice/heating pad, stretching exercises 3 times per day) advised. Related to Lumbago Labs ordered; UPT negative. Rela nestor to Irregular menstruation, unspecified Encouraged patient t o continue to do well with diet and exercise. Labs ordered; continue current meds for now and will make changes based on lab results. Related to Type 2 diabetes mellitus without complications Weight control education Related to Type 2 diabetes mellitus without complications Start macrobid tonig ht.Finish all antibiotics. Increase fluid intake.Bladder care discussed.Will send urine for culture. Return if symptoms not improved in 2 days and recheck at end of treatment and PRN. Related to UTI well women exam toda y breast exam only patient declined pelvic exam and patient is not due for pap smear until 2019 due to negative pap screen in 2013 and negative HPV cotesting Estrellita Plaza was acting as the scribe for this visit. The scribe's documentation has been prepared under my direction and personally reviewed by me. I confirm that the note above accurately reflects all work, treatment, procedures, and medical decision making performed by me. 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 A1C no t at goal >8%. Medication adjustments made. Prescription given for new higher dosage change. Call with blood sugar logs weekly x 4 weeks for further med adjustments. Related to Type 2 diabetes mellitus without complications Labs ordered; mild a bnormalities. Call if symptoms worsen or persist. Related to Dysuria Labs ordered; not an emic and has normal TSH. Discussed that menopause is 12 months without a period and if she reached that and had vaginal bleeding after that, she needed to call for more work up. Supportive therapy advised. Call if symptoms worsen or persist. Related to Irregular menstruation, unspecified Weight control education Related to Type 2 diabetes mellitus without complications Labs ordered. Consid er referral to obgyn. Call if symptoms worsen or persist. Related to Menorrhagia Supportive therapy a dvised. Call if symptoms worsen or persist.Patient seen with RAVI Márquezp. Related to Upper respiratory infection Prescription given/sent. Related to Tinea pedis Continue current med ications. Diet and exercise discussed. 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 Advised patient to use tylenol and baclofen as needed. Will add icy hot cream to be used as needed. Advised patient to call if symptoms worsen or persist. Related to Hip pain Continue current med ication. Will check non-fasting lab today. Advised patient to return in 3 months for fasting lab. Related to Hypertriglyceridemia Continue current med ication. Will check lab today and make adjustments to medication if needed.Exam completed in combination with Laurita Bartlett, [employer] student. Related to Diabetes Supportive therapy a dvised--try ASA as needed. Call if symptoms worsen or persist. Related to Headache Medication adjustmen ts made. Prescription given for new medication. Eat low cholesterol/low triglyceride diet. Return to clinic for recheck in 6 weeks or earlier if having worsening symptoms. Related to Hypertriglyceridemia Reviewed labs. Medic ation adjustments made. Prescription given for new medication. Eat carb consistent diabetic diet. Regular exercise 150min/week. Related to Diabetes per above Related to Hip p ain Xrays ordered. Medic ation adjustments made. Prescription given for new medication. Stop ibuprofen since ineffective. Return to clinic for recheck in 4 weeks or earlier if having worsening symptoms. Related to Lumbago Labs ordered; and wi ll make changes based on lab results. Related to Hypertriglyceridemia Endometrial biopsy p rocedure performed without complcations. Biopsy sample sent and will call with results. See scanned consent form. Post procedural precautions advised: patient to call if there is significant bleeding, signs of infection such as fever, abdominal pain, vaginal discharge, or other concerns. Related to Menorrhagia Order to be on diabetic/carbohydrate consistent diet for controlled diabetes and to check fingerstick glucose as needed for symptoms. Labs ordered; will make changes based on lab results. Related to Diabetes Continue current med ications. Prescription given. Related to Back pain May be related to me ds or low blood sugar. Check labs today. Call if symptoms worsen or persist. Related to Dizziness UA negative for obvi ous infection. Kegel exercise hand out given. Call if symptoms worsen or persist. May need to get postvoid residual if she has concerns of incomplete emptying of bladder. Related to Stress incontinence per #2. Related to Urgen cy - urination Patient to make appo intment for endometrial bx within 2 weeks. Related to Irregular periods Check HgbA1c today. Will notify of results. Pt seen with [employer] student [employer]. Related to OTHER ABNORMAL GLUCOSE Will refer for ultra sound and endometrial biopsy. TSH and CBC normal on last visit September 2013. Related to Menorrhagia Stop Oxybutynin. Dec rease caffeine intake, limit fluids 2 hours before bed. Related to Urinary frequency Weight counseling Related to OTH ER ABNORMAL GLUCOSE Weight counseling Related to Ezequiel izophrenic disorders, residual type, unspecifie Assessments Type Assessment Date No Information Patient Care Teams Name Effective Dates (start - stop) Status Members No Information
--- OUTSIDE RECORDS SUMMARY | 2024-07-08 06:42 | XMS_ITS | Continuity of Care Document ---
Author Organization [address] [place] [address] [place] [address] Phone Care Team Providers Care Fishing Tool Supervisor Name Role Phone Jose David Scott MD Unavailable Unavailable Allergies, Adverse Reactions, Alerts Substance Reaction Status Criticality Penicillins Active No Information Medications Medication Instructions Dosage Effective Dates (start - stop) Status Comments divalproex 250 mg tablet,delayed release take 1 tablet by oral route 2 times every day 250 MG - Active docusate sodium 100 mg capsule take 1 capsule by oral route every day at bedtime as needed 100 MG - Active gemfibrozil 600 mg tablet take 1 tablet by oral route 2 times every day 30 minutes before morning and evening meal 600 MG - Active Lantus Solostar U-100 Insulin 100 unit/mL (3 mL) subcutaneous pen inject by subcutaneous route as per insulin protocol 0.00 - Active levothyroxine 25 mcg tablet take 1 tablet by oral route every day 25 MCG - Active lorazepam 1 mg tablet take 1 tablet by o ral route 3 times every day as needed 1 MG - Active metformin 1,000 mg tablet take 1 tablet by oral route 2 times every day with morning and evening meals 1000 MG - Active montelukast 10 mg tablet take 1 tablet by oral route every day in the evening 10 MG - Active Multiple Vitamins tablet - Active nitroglycerin 0.[address] 1 tablet by sublingual route at 1st sign of attack; may repeat every 5 minutes up to 3 tabs; if norelief seek medical help 0.4 MG - Active Risperdal Consta 12.5 mg/2 mL intramuscular susp,extended release inject 4 milliliter by intramuscular route every 14 days using 2 separate injection sites by deep gluteal injection 25 MG - Active Seroquel 200 mg tablet take 1 tablet by oral route 2 times every day 200 MG - Active Seroquel 50 mg tablet take 1 tablet by o ral route 2 times every day 50 MG - Active sertraline 200 mg capsule take 1 capsule by oral route every day 200 MG - Active trazodone 50 mg tablet take 1 tablet by oral route every day at bedtime 50 MG - Active Trulicity 3 mg/0.5 mL subcutaneous pen injector inject (3MG) by subcutaneous route every week 3 MG - Active Problems Condition Type Effective Dates (start - stop) Clini raquel Status Comments No Known Problems Procedures Procedure Date Vision svcs frames purchases Lens sphcyl bifocal 4.00d/.1 COMPRE OPH EXAM NEW PT 1/> Advance Directives Directive Yes / No Effective Date File Name No Information Encounters Encounter Description Practice Location Reason(s) For Visit Diagnoses Date Provider Providers Copied on Encounter [address] [place] [address], [id number], tel:[phone] [facility] [address] [place] [address], [id number], tel:[phone] [facility] Blurry vision (chief complaint) Diabetic eye exam (chief complaint) Age-related nuclear cataract, bilateralType 2 diabetes mellitus without complications 5 NIESHA Soria. Referring Provider: Hector Hliliard. [address] [place] [address], [address] [place] [address], [id number], tel:[phone] [facility] No Information 5 NEISHA Soria. Family History Family Member Type Diagnosis Age At Onset No Information Payers Payer name Insurance type Covered green party ID Authoriza tion(s) Medicaid [facility] [id number] Social History Type Description Quantity Date Captured Comments Sex Female Smoking Status No Information Chief Complaint And Reason For Visit No Information Reason For Referral Reason For Referral No Information History Of Present Illness Encounter Date Complaint History Of Prese nt Illness Blurry vision Diabetic eye exam 68 yo wf here for eye exam. vision is blurry distance and near. has not had sx on her eyes in the past. has DM II as well. Functional Status Date Functional Assessmen t No Information Instructions Date Instruction Additional Infor anish Impression/Plan - no retinopathy seen Related to Type 2 diabetes mellitus without complications Impression/Plan - mi ld. to mod. very near sighted. updating glasses today Related to Age-related nuclear cataract, bilateral Assessments Type Assessment Date assessment Presbyopia Patient Care Teams Name Effective Dates (start - stop) Status Members No Information
--- NOTE | 2025-03-04 11:06 | ECG_ITS ---
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 Measurements Intervals [place] Rate: 94 P: 70 [place]: 184 QRS: -36 QRSD: 82 T: 72 QT: 360 QTc: 451 Interpretive Statements SINUS RHYTHM LEFT AXIS DEVIATION [QRS AXIS < -30] LOW QRS VOLTAGE IN PRECORDIAL LEADS [QRS DEFLECTION < 1.0 mV IN CHEST LEADS] POSSIBLE ANTERIOR MYOCARDIAL INFARCTION , PROBABLY OLD [30 ms Q WAVE IN V3/V4, OR R < 0.2 mV IN V4] No previous ECG available for comparison Electronically Signed On 03-05-2025 20:49:15 CDT by Eitan Banda M.D. [email or web address]
[2025-03-04 11:19] VITALS: BP 176/88; PULSE 95; RESP 17; TEMP 36.6; O2SAT 98
--- NOTE | 2025-03-04 11:20 | XR_ITS ---
WS: [id number] Exam: XR chest 1V portable [id number] Date/Time of Exam: 03/04/2025 11:21 AM Reason For Exam: Psychiatric work up No priors. The lungs are fully inflated and clear. Normal cardiomediastinal silhouette. No pleural effusion. Bony structures are unremarkable. XR/XR chest 1V portable [id number] IMPRESSION: 1. No acute cardiopulmonary finding.
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
[2025-03-04 11:53] LABS: Hematocrit 44.4 % (36-47); Hemoglobin 15.10 g/dL (11.27-16.99); Mean Corpuscular HGB Conc 34.0 g/dL (30-55); Mean Corpuscular Hemoglobin 27.8 pg (27-33); Mean Corpuscular Volume 81.8 fl (85-98); Nucleated Red Blood Cells % 0 %; Platelet Count 320 10^3/cmm (157-399); Red Blood Count 5.43 10^6/uL (3.85-5.65); White Blood Count 9.38 10^3/uL (3.29-11.43)
[2025-03-04 12:30] LABS: Alanine Aminotransferase 15 U/L (0-33); Albumin Level 4.7 g/dL (3.5-5.2); Alkaline Phosphatase 215 U/L (35-105); Anion Gap 21.7 (5-19); Aspartate Amino Transferase 23 U/L (0-32); Blood Urea Nitrogen 18 mg/dL (8-23); Calcium 10.6 mg/dL (8.5-10.5); Carbon Dioxide 21 mmol/L (22-29); Chloride 100 mmol/L (98-107); Globulin 4.0 g/dL (1.3-4.6); Glucose 107 mg/dL (65-115); Osmolality Calculated 290 mOsm/kg (285-295); Potassium 3.7 mmol/L (3.5-5.1); Sodium 139 mmol/L (136-145); Thyroid Stimulating Hormone 1.21 uIU/mL (0.27-4.20); Total Protein 8.7 g/dL (6.6-8.7)
[2025-03-04 12:34] LABS: Acetaminophen < 5.0 ug/mL (10-30); Alcohol Level < 10 mg/dL (0-10); Salicylate < 0.3 mg/dL (3-10)
[2025-03-04 12:48] LABS: Glucose Urine UA Negative (Normal); Nitrate Urine Positive (Negative); Specific Gravity, Urine 1.013 (1.005-1.030)
[2025-03-04 12:53] LABS: Add Urine Microscopic? YES
[2025-03-04 12:55] LABS: PCP Screen Urine Negative (Negative)
[2025-03-04 13:05] LABS: Respiratory Syncytial Virus Ce NEGATIVE (Negative); SARS-CoV-2 PCR NEGATIVE (Negative)
[2025-03-04 13:12] LABS: UA Slide Review UA Slide Review Perf
[2025-03-04 13:47] VITALS: PULSE 86; O2SAT 99
[2025-03-04] MEDS: cefTRIAXone 1,000 MG in water for injection-sterile 2.1 ML 2.1 MG IM (14:40)
[2025-03-04] MEDS: haloperidol inj 5 mg/mL INJ 1 mL 10 MG IM (15:04)
[2025-03-04 16:30] VITALS: PULSE 77; O2SAT 97
--- NOTE | 2025-03-04 23:06 | PC.NURSE ---
pt resting in bed with bed rails x2 up. PT RR even non labored at 16. Pt did awake upon this nurse walking into, rolled over with blanket and closed eyes, resting.
[2025-03-04 23:13] VITALS: RESP 17
[2025-03-05 06:05] VITALS: BP 163/81; PULSE 87; RESP 17; O2SAT 97
== END 2025-03-05 08:53 | disposition home or self-care (01) ==
PROVIDERS: Emergency Provider Emergency Medicine
DX: N39.0 Urinary tract infection, site not specified (principal); F05 Delirium due to known physiological condition; Z11.52 Encounter for screening for COVID-19; E11.9 Type 2 diabetes mellitus without complications; E78.5 Hyperlipidemia, unspecified
CPT/HCPCS: 71045; 80053; 80306; 80307; 81001; 84443; 85025; 87077; 87086; 87186; 87637; 93005; 96372; 99285; J0696; J1630

== ENCOUNTER 2025-03-14 03:43 | Emergency (ER) | payer MEDICAID, SELFPAY ==
[2025-03-14 03:55] VITALS: BMI 35.4
[2025-03-14 04:09] VITALS: BP 196/100; PULSE 93; RESP 18; TEMP 36.6; O2SAT 99
--- NOTE | 2025-03-14 04:09 | ECG_ITS ---
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 Measurements Intervals [place] Rate: 80 P: 36 TN: 177 QRS: -24 QRSD: 81 T: 18 QT: 382 QTc: 441 Interpretive Statements SINUS RHYTHM LOW QRS VOLTAGE IN PRECORDIAL LEADS [QRS DEFLECTION < 1.0 mV IN CHEST LEADS] MINIMAL VOLTAGE CRITERIA FOR LVH, CONSIDER NORMAL VARIANT [MEETS CRITERIA IN ONE OF: R(aVL), S(V1), R(V5), R(V5/V6)+S(V1)] POSSIBLE ANTERIOR MYOCARDIAL INFARCTION , PROBABLY OLD [30 ms Q WAVE IN V3/V4, OR R < 0.2 mV IN V4] Compared to ECG 03/04/2025 12:30:01 Left-axis deviation no longer present Myocardial infarct finding still present Electronically Signed On 03-15-2025 14:37:29 CDT by Ezra Avery M.D. [id number] [id number]
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
[2025-03-14 04:54] LABS: Hematocrit 42.8 % (36-47); Hemoglobin 14.20 g/dL (11.27-16.99); Mean Corpuscular HGB Conc 33.2 g/dL (30-55); Mean Corpuscular Hemoglobin 27.5 pg (27-33); Mean Corpuscular Volume 82.9 fl (85-98); Nucleated Red Blood Cells % 0 %; Platelet Count 279 10^3/cmm (157-399); Red Blood Count 5.16 10^6/uL (3.85-5.65); White Blood Count 7.96 10^3/uL (3.29-11.43)
[2025-03-14 05:07] LABS: Glucose Urine UA 1+ (Normal); Nitrate Urine Negative (Negative); Specific Gravity, Urine 1.016 (1.005-1.030)
[2025-03-14 05:17] LABS: Acetaminophen < 5.0 ug/mL (10-30); Alanine Aminotransferase 13 U/L (0-33); Albumin Level 4.3 g/dL (3.5-5.2); Alcohol Level < 10 mg/dL (0-10); Alkaline Phosphatase 183 U/L (35-105); Anion Gap 21.4 (5-19); Aspartate Amino Transferase 16 U/L (0-32); Blood Urea Nitrogen 18 mg/dL (8-23); Calcium 10.0 mg/dL (8.5-10.5); Carbon Dioxide 21 mmol/L (22-29); Chloride 100 mmol/L (98-107); Creatinine Clr Calc Pharmacy 72.9596; Globulin 3.4 g/dL (1.3-4.6); Glucose 324 mg/dL (65-115); Osmolality Calculated 300 mOsm/kg (285-295); Potassium 4.4 mmol/L (3.5-5.1); Salicylate < 0.3 mg/dL (3-10); Sodium 138 mmol/L (136-145); Total Protein 7.7 g/dL (6.6-8.7)
[2025-03-14 05:24] LABS: Add Urine Microscopic? YES; UA Manual Slide Review YES
[2025-03-14 06:56] VITALS: PULSE 90; RESP 16; O2SAT 98
--- NOTE | 2025-03-14 06:56 | PC.NURSE ---
THIS NURSE ASSUMED CARE @ 3638.
[2025-03-14 07:33] VITALS: BP 140/71; PULSE 81; O2SAT 99
== END 2025-03-14 07:37 | disposition home or self-care (01) ==
PROVIDERS: Emergency Provider Student in an Organized Health Care Education/Training Program
DX: F91.8 Other conduct disorders (principal); Z79.4 Long term (current) use of insulin; Z79.84 Long term (current) use of oral hypoglycemic drugs
CPT/HCPCS: 36415; 80053; 80307; 81001; 85025; 87077; 87086; 87186; 93005; 99284